=== PATIENT | female | born 1950 | race Caucasian/White ===

== ENCOUNTER 2021-06-06 01:35 | Day surgery (SDC) | payer MEDICARE, OTHER, SELFPAY ==
[2021-05-25 15:04] VITALS: BMI 31.6
[2021-06-06 10:33] VITALS: BP 128/79; PULSE 73; RESP 18; TEMP 36; O2SAT 97; BMI 33.5
--- NOTE | 2021-06-06 10:42 | PM.HPGS ---
History of Present Illness History of Present Illness Consent: Risks, benefits, and alternatives have been discussed and questions answered. Patient agrees to proceed with procedure. Chief complaint: dysphagia Narrative: Nia Horton is a 70 year old female With dysphagia for solid food. She does have a history of having an esophageal stricture. Review of Systems Review of Systems: All systems reviewed & are unremarkable except as noted in HPI and below PMFSH Past Medical History Medical History Hypertension Social History Social History Smoking status: Former smoker Alcohol intake: former Substance use: never Substance use type: does not use Living arrangements: with family Gender identity (if verbalized by the patient): Female Spiritual care concerns: No Meds Home Medications and Allergies Home Medications Medication Instructions Recorded Confirmed Type esomeprazole magnesium 20 mg 20 mg PO DAILY 01/17/21 06/06/21 History capsule,delayed release hydrochlorothiazide 50 mg tablet 50 mg PO DAILY 01/17/21 06/06/21 History lisinopril 40 mg tablet 40 mg PO DAILY 01/17/21 06/06/21 History amiloride 5 mg PO DAILY 05/25/21 06/06/21 History carbidopa-levodopa 1 tablet PO DAILY 05/25/21 06/06/21 History citalopram 20 mg PO DAILY 05/25/21 06/06/21 History Allergies Allergy/AdvReac Type Severity Reaction Status Date / Time No Known Allergies Allergy Verified 06/06/21 10:31 Vital Signs Vital Signs - 24 hr 06/06/21 10:33 Temperature 36.0 C L Pulse Rate 73 Respiratory Rate 18 Blood Pressure 128/79 Pulse Oximetry 97 Exam Resp: Auscultation: clear to auscultation bilaterally Cardio: Rate: regular rate Rhythm: regular rhythm GI: GI Palp: Yes Soft to palpation and No Tenderness to palpation present (GI) Assessment and Plan Assessment and plan (1) Dysphagia: Code(s): R13.10 - Dysphagia, unspecified Status: Acute Assessment and Plan: EGD with possible biopsy or dilatation or cautery.
[2021-06-06] MEDS: LACTATED RINGERS 1,000 ML 150 ML IV CONT (10:44)
--- NOTE | 2021-06-06 10:47 | P.PNAN_ITS ---
Anes - Initial Pre Proc Eval Procedure: Operation Date: 06/06/21 11:00 Proposed Procedures p Esophagogastroduodenoscopy - Tommy Perera MD Date/Time: 06/06/21 10:47 Surgeon: Tommy Perera MD Pre Op Diagnosis: dysphagia Patient Data Age: 70 Gender: F Height: 1.63 m Weight: 88.5 kg Last Vital Signs Temp 36.0 C L 06/06/21 10:33 Pulse 73 06/06/21 10:33 Resp 18 06/06/21 10:33 BP 128/79 06/06/21 10:33 Pulse Ox 97 06/06/21 10:33 Allergies Allergy/AdvReac Type Severity Reaction Status Date / Time No Known Allergies Allergy Verified 06/06/21 10:31 Home Medications Medication Instructions Recorded Confirmed Type esomeprazole magnesium 20 mg 20 mg PO DAILY 01/17/21 06/06/21 History capsule,delayed release hydrochlorothiazide 50 mg tablet 50 mg PO DAILY 01/17/21 06/06/21 History lisinopril 40 mg tablet 40 mg PO DAILY 01/17/21 06/06/21 History amiloride 5 mg PO DAILY 05/25/21 06/06/21 History carbidopa-levodopa 1 tablet PO DAILY 05/25/21 06/06/21 History citalopram 20 mg PO DAILY 05/25/21 06/06/21 History Patient hx anesthesia problems: none Family hx anesthesia problems: none [facility] Past Medical History Medical History Hypertension Social History Social History Smoking status: Former smoker Alcohol intake: former Substance use: never Substance use type: does not use Living arrangements: with family Gender identity (if verbalized by the patient): Female Spiritual care concerns: No Anes - Eval Final PreProcedure Day of Procedure 06/06/21 10:47 Patient weight: obese Heart: regular rate and rhythm Lungs: clear to auscultation Airway: Mallampati scale class II Neurological: alert and oriented Last oral intake: >/= 8 hours ASA classification: III Emergent: no Anesthetic plan: proceed Anesthesia type and monitoring: general GIVS and standard monitoring Informed Consent: The patient's anesthetic plan and its attendant risks and benefits were discussed with the patient/family/POA. Questions were solicited and answers provided to the satisfaction of the patient/family/POA.
[2021-06-06 11:21] VITALS: BP 89/51; PULSE 71; RESP 15; O2SAT 100
[2021-06-06 11:31] VITALS: BP 95/57; PULSE 64; RESP 11; O2SAT 100
[2021-06-06 11:41] VITALS: BP 98/54; PULSE 63; RESP 16; O2SAT 100
== END 2021-06-06 11:50 | disposition home or self-care (01) ==
PROVIDERS: PCP Internal Medicine; Visit Provider Internal Medicine Gastroenterology
PROC: 0DJ08ZZ Inspection of Upper Intestinal Tract, Via Natural or Artificial Opening Endoscopic (ICD-10-PCS; CPT 43235; principal; 2021-06-06 11:00)
DX: R13.10 Dysphagia, unspecified (principal); K22.2 Esophageal obstruction; Z87.891 Personal history of nicotine dependence; K44.9 Diaphragmatic hernia without obstruction or gangrene; Z98.84 Bariatric surgery status
CPT/HCPCS: 43249; C1726; J2704; J7120

== ENCOUNTER 2024-09-03 13:06 | Outpatient (CLI) | payer MEDICARE, SELFPAY ==
--- NOTE | 2024-09-03 14:25 | NEURO_ITS ---
Impression: # Complains of nocturnal paresthesia of right hand. # Right Carpal Tunnel Syndrome, sensory more than motor. # No ulnar neuropathy. # Normal needle/EMG exam. Nerve Conduction Studies Anti Sensory Summary Table Stim Site NR Peak (ms) P-T Amp (?V) Site1 Site2 Delta-P (ms) Dist (cm) Jackson (m/s) Right Median Anti Sensory (2-3nd Digit) Wrist 4.1 22.4 Wrist 2-3nd Digit 4.1 14.0 34 Wrist 4.8 28.3 Wrist 2-3nd Digit 4.1 14.0 34 Right Radial Anti Sensory (Base 1st Digit) Wrist 2.3 12.9 Wrist Base 1st Digit 2.3 0.0 Right Ulnar Anti Sensory (5th Digit) Wrist 2.7 65.9 Wrist 5th Digit 2.7 14.0 52 Motor Summary Table Stim Site NR Onset (ms) O-P Amp (mV) Site1 Site2 Delta-0 (ms) Dist (cm) Jackson (m/s) Right Median Motor (Abd Poll Brev) Wrist 3.5 3.0 Elbow Wrist 4.6 28.0 61 Elbow 8.1 5.4 Right Ulnar Motor (Abd Dig Minimi) Wrist 2.6 5.1 A Elbow Wrist 4.7 28.0 60 A Elbow 7.3 4.2 F Wave Studies NR F-Lat (ms) L-R F-Lat (ms) Right Median (Mrkrs) (Abd Poll Brev) 28.58 Right Ulnar (Mrkrs) (Abd Dig Min) 28.16 EMG Side Muscle Nerve Root Ins Act Fibs Amp Dur Recrt Comment Right 1stDorInt Ulnar C8-T1 Nml Nml Nml Nml Nml Right Ext Indicis Radial (Post Int) C7-8 Nml Nml Nml Nml Nml Right Ext Digitorum Radial (Post Int) C7-8 Nml Nml Nml Nml Nml Right BrachioRad Radial C5-6 Nml Nml Nml Nml Nml Right PronatorTeres Median C6-7 Nml Nml Nml Nml Nml Right Abd Poll Brev Median C8-T1 Nml Nml Nml Nml Nml Right ABD Dig Min Ulnar C8-T1 Nml Nml Nml Nml Nml MTDD
== END 2024-09-03 13:07 | disposition home or self-care (01) ==
PROVIDERS: PCP Internal Medicine; Visit Provider Internal Medicine
DX: G56.01 Carpal tunnel syndrome, right upper limb (principal)
CPT/HCPCS: 95886; 95909